=== PATIENT | female | born 1990 | race Caucasian/White ===

== ENCOUNTER 2018-12-25 07:10 | Day surgery (SDC) | payer OTHER ==
[~2018-12-25] VITALS: Ht 160 cm; Wt 74.8 kg
[2018-12-25] MEDS ORDERED: ceFAZolin 1,000 MG VIAL ONE (07:54)
[2018-12-25] MEDS ORDERED: BUPIVACAINE-MPF/EPI 0.25% 30 ML VIAL INJ ONE (07:54)
[2018-12-25] MEDS ORDERED: SUCCINYLCHOLINE CHLORIDE 200 MG/10 ML VIAL IVP ONE (08:34)
[2018-12-25] MEDS ORDERED: GLYCOPYRROLATE 0.2 MG/ML VIAL ONE (08:34)
[2018-12-25] MEDS ORDERED: NEOSTIGMINE 1:1000 10 MG/10 ML VIAL ONE (08:34)
[2018-12-25] MEDS ORDERED: DESFLURANE 240 ML BTL INH ONE (08:34)
[2018-12-25] MEDS ORDERED: ONDANSETRON 4 MG/2 ML VIAL ONE (08:34)
[2018-12-25] MEDS ORDERED: PROPOFOL 200 MG/20 ML VIAL IV ONE (08:34)
[2018-12-25] MEDS ORDERED: KETOROLAC 30 MG/ML VIAL ONE (08:34)
[2018-12-25] MEDS ORDERED: ROCURONIUM 50 MG/5 ML VIAL IV ONE (08:34)
[2018-12-25] MEDS ORDERED: fentaNYL 0.05 MG/ML VIAL ONE ×2 (08:48→10:16)
[2018-12-25] MEDS ORDERED: ONDANSETRON 4 MG/2 ML VIAL IV PRN (10:00)
[2018-12-25] MEDS ORDERED: MORPHINE SULFATE 2 MG/ML SYR IVP PRN (10:00)
[2018-12-25] MEDS ORDERED: HYDROmorphone 1 MG/ML AMP IVP PRN (10:00)
[2018-12-25] MEDS ORDERED: MORPHINE SULFATE 4 MG/ML SYR IV PRN (10:00)
[2018-12-25] MEDS ORDERED: HYDROcodone/APAP 5/325 MG 1 TAB TAB PO PRN (10:00)
[2018-12-25] MEDS: fentaNYL 0.05 MG/ML VIAL IVP PRN ×2 (10:05→10:25)
== END 2018-12-25 12:20 | disposition home or self-care (01) ==
LOC: MDS 07:10 → MMU 07:10 → MDS 12:20
PROVIDERS: ATTEND Surgery
DX: K42.9 Umbilical hernia without obstruction or gangrene (principal); Z88.2 Allergy status to sulfonamides; Z98.890 Other specified postprocedural states
CPT/HCPCS: 49585; 71045; J0330; J0690; J1885; J2270; J2405; J2704; J2710; J3010; J3490; J7060; J7120; C1781; J1170